=== PATIENT | female | born 1950 | race Caucasian/White ===

== ENCOUNTER → 2020-02-04 08:54 | Outpatient (BNVA) | payer MEDICARE, OTHER, SELFPAY | PROVIDERS: Family Provider Nurse Practitioner; PCP Family Medicine; Visit Provider Internal Medicine Rheumatology | DX: R76.8 Other specified abnormal immunological findings in serum (principal); M19.90 Unspecified osteoarthritis, unspecified site; Z79.899 Other long term (current) drug therapy; F17.210 Nicotine dependence, cigarettes, uncomplicated | CPT/HCPCS: 36415; 80076; 81001; 82565; 82570; 84156; 85025; 99213 ==

== ENCOUNTER 2024-07-01 08:10 | Outpatient (CLI) | payer MEDICARE, OTHER, SELFPAY ==
--- NOTE | 2024-07-01 08:17 | FL_ITS ---
WS: [id number] Exam: FL barium enema [id number] Date/Time of Exam: 07/01/2024 8:42 AM Reason For Exam: DIVERTICULOSIS OF COLON There is severe diverticulosis of the sigmoid and LEFT colon with scattered diverticuli throughout the remaining colon. There was marked colonic spasm noted during the exam which caused prolonged filling of the colon. The patient could not retain the usual amount of barium to distend the colon. There are multiple filling defects identified in the LEFT colon which more than likely represents retained stool in the diverticuli. A small mass or polyp could easily be obscured. The colon does fill to the cecum and there is reflux into the terminal ileum. The colon is not displaced. FL/FL barium enema [id number] IMPRESSION: 1. Severe diverticulosis of the sigmoid and LEFT colon with additional scattere d diverticuli throughout the remaining colon. Severe colonic spasm which compro mised the patient retaining the usual amount of barium. 2. Compromised study with multiple filling defects in the sigmoid and LEFT colo n most likely due to retained stool in multiple diverticuli. This would preclud e detection of a small mucosal lesion or polyp in this region.
== END 2024-07-01 08:11 | disposition home or self-care (01) ==
LOC: RAD 08:13
PROVIDERS: PCP Family Medicine; Visit Provider Surgery Vascular Surgery
DX: K57.30 Diverticulosis of large intestine without perforation or abscess without bleeding (principal); K58.8 Other irritable bowel syndrome; R93.89 Abnormal findings on diagnostic imaging of other specified body structures
CPT/HCPCS: 74270

== ENCOUNTER → 2025-02-10 10:44 | Outpatient (BNVA) | payer MEDICARE, OTHER, SELFPAY | PROVIDERS: PCP Family Medicine; Visit Provider Internal Medicine Rheumatology | DX: R76.89 Other specified abnormal immunological findings in serum (principal); M13.80 Other specified arthritis, unspecified site; Z82.69 Family history of other diseases of the musculoskeletal system and connective tissue | CPT/HCPCS: 99214 ==